=== PATIENT | male | born 1945 | race Caucasian/White ===

== ENCOUNTER 2016-11-06 11:29 | Outpatient (CLI) | payer MEDICARE, OTHER ==
[2016-11-06 19:32] LABS: BASOPHILS % (AUTO) 0.9 %; EOSINOPHILS # (AUTO) 0.4 10^3/uL (0.0-0.7); EOSINOPHILS % (AUTO) 7.2 %; HCT - HEMATOCRIT 45.1 % (42.0-52.0); HGB - HEMOGLOBIN 14.9 g/dL (14.0-18.0); LYMPHOCYTES # (AUTO) 1.6 10^3/uL (1.5-3.5); LYMPHOCYTES % (AUTO) 31.5 %; MEAN CORPUSCULAR HEMOGLOBIN 33.4 pg (27.0-31.0); MEAN CORPUSCULAR HGB CONC 33.1 g/dL (32.0-36.0); MEAN CORPUSCULAR VOLUME 100.9 fL (80.0-94.0); MEAN PLATELET VOLUME 9.2 fL (7.4-11.4); MONOCYTES # (AUTO) 0.9 10^3/uL (0.0-1.0); MONOCYTES % (AUTO) 18.2 %; NEUTROPHILS # (AUTO) 2.1 10^3/uL (1.5-6.6); NEUTROPHILS % (AUTO) 42.2 %; NUCLEATED RED BLOOD CELLS AUTO 0.1 /100WBC; RED BLOOD COUNT 4.47 10^6/uL (4.70-6.10); RED CELL DISTRIBUTION WIDTH 13.4 % (12.0-15.0); UNCORRECTED WHITE BLOOD COUNT 5.1 x10^3/uL; WHITE BLOOD COUNT 5.1 x10^3/uL (4.8-10.8)
[2016-11-06 20:02] LABS: ALBUMIN/GLOBULIN RATIO 1.6 (1.0-2.2); BILIRUBIN,TOTAL 0.9 mg/dL (0.2-1.0); BUN - BLOOD UREA NITROGEN 31 mg/dL (6-20); CALCIUM 9.1 mg/dL (8.5-10.3); CARBON DIOXIDE - CO2 23 mmol/L (21-32); CHLORIDE 108 mmol/L (101-111); CHOLESTEROL 191 mg/dL; CREATININE 1.7 mg/dL (0.6-1.2); GFR - MDRD 40 (>89); GLUCOSE 92 mg/dL (70-100); HDL CHOLESTEROL 38 mg/dL; LDL/HDL RATIO 3.3 (<3.6); POTASSIUM 4.5 mmol/L (3.5-5.0); SODIUM 140 mmol/L (135-145); TOTAL PROTEIN 6.9 g/dL (6.7-8.2); TRIGLYCERIDES 146 mg/dL; VLDL CHOLESTEROL 29 mg/dL
[2016-11-06 20:54] LABS: HEMOGLOBIN A1C 0.68 g/dL
== END 2016-11-06 11:30 | disposition home or self-care (01) ==
LOC: LAB.WCP 11:29
PROVIDERS: ATTEND Family Medicine
DX: N18.9 Chronic kidney disease, unspecified (principal); Z12.5 Encounter for screening for malignant neoplasm of prostate; R79.9 Abnormal finding of blood chemistry, unspecified
CPT/HCPCS: 36415; 80053; 80061; 83036; 85025; G0103; 84153

== ENCOUNTER 2016-11-28 23:22 | Emergency (ER) | payer MEDICARE, OTHER ==
--- NOTE | 2016-11-29 00:27 | XRAY Preliminary Report ---
Exam: XR Wrist 3 View RT IMPRESSION: No displaced right wrist fracture seen. [facility] SITE ID: [id number]
--- NOTE | 2016-11-29 00:30 | XRAY Report ---
EXAM: RIGHT WRIST RADIOGRAPHY EXAM DATE: 11/29/2016 12:14 AM. CLINICAL HISTORY: Fell/injury to R wrist . COMPARISON: None. TECHNIQUE: 3 views. FINDINGS: Bones: Normal. No fractures or bone lesions. Joints: No acute malalignment. Mild right thumb IP joint degenerative changes. Soft Tissues: Possible old tiny flecks of foreign material in the soft tissues of the palmar aspect o f the total right thumb. IMPRESSION: No displaced right wrist fracture seen. [facility] Referring Provider Line: [phone] SITE ID: [id number]
[2016-11-29 00:39] VITALS: BP 143/87
--- NOTE | 2016-11-29 01:10 | ED Physician Documentation ---
History of Present Illness - Stated complaint Stated Complaint: RT wrist PX/INJURY - Chief complaint Chief Complaint: Trauma Ext - History obtained from History obtained from: Patient, Family - Additonal information Additional information: Patient is a pleasant right-hand dominant male who fell on an outstretched right hand. He complains of pain on the lateral aspect distal to the wrist of the right hand. He denies any injury to the elbow or shoulder. This injury occurred prior to arrival. He denies any presyncope or syncope and has no active medical complaints other than pain in the hand. Review of systems: For pertinent positive and negatives in the review of systems please see history of present illness. Otherwise all other systems have been reviewed and are negative. [employer] disclaimer: Parts of this medical record were created using voice recognition technology. Because of the inherent limitations of this system occasional same sounding word substitutions do occur and persist despite proofreading. Please read the document for context. Review of Systems Musculoskeletal: reports: Extremity pain, Joint pain, Extremity swelling, Joint swelling. denies: Neck pain, Back pain PD PAST MEDICAL HISTORY - Past Medical History Past Medical History: Yes Cardiovascular: Hypertension, High cholesterol Endocrine/Autoimmune: Type 2 diabetes Psych: ADD/ADHD - Past Surgical History Past Surgical History: Yes - Present Medications Home Medications: Ambulatory Orders Medication Instructions Recorded Confirmed Tramadol HCl 50 mg PO Q8HR PRN #14 tablet 11/29/16 - Allergies Allergies/Adverse Reactions: Allergies Allergy/AdvReac Type Severity Reaction Status Date / Time shellfish derived Allergy Hives Verified 11/28/16 23:31 - Social History Does the pt smoke?: No Smoking Status: Never smoker Does the pt drink ETOH?: Yes Does the pt have substance abuse?: No - Immunizations Immunizations are current?: Yes - POLST Patient has POLST: No PD ED PE NORMAL - Vitals Vital signs reviewed: Yes - General General: Alert and oriented X 3, No acute distress, Well developed/nourished - HEENT HEENT: Atraumatic, PERRL - Neck Neck: Supple, no meningeal sign - Cardiac Cardiac: RRR - Respiratory Respiratory: No respiratory distress - Back Back: No spinal TTP - Derm Derm: Normal color, Warm and dry - Extremities Extremities: Other (On examination of the right hand he has mild soft tissue swelling and some bruising distal to the right ulna. Careful palpation of the patient's carpal bones really feels fails to fails to identify any significant bony tenderness. The scaphoid area is completely atraumatic. Rest of the patient's wrist and hand was carefully examined and palpated and is unimpressive.) Results - Vitals Vitals: Vital Signs - 24 hr 11/28/16 11/29/16 23:26 00:37 Temperature 36.5 C Heart Rate 81 75 Respiratory 16 16 Rate Blood Pressure 141/85 H 143/87 H O2 Saturation 99 98 Oxygen O2 Source Room air PD MEDICAL DECISION MAKING - ED course ED course: [id number] male who fell on an outstretched hand earlier today. On examination he has mild soft tissue swelling distal to the ulna. There is no scaphoid tenderness on examination. X-rays of the patient's right hand reviewed by me and also read by radiology is negative for any fracture dislocation. Clinically I think suspect a sprain and doubt an occult fracture of the carpal bones. . The patient was placed in a well-padded volar splint for comfort and will be issued pain medication. I have asked him to rest it, elevate it take pain medications as needed and if he still having discomfort, swelling and pain then to follow-up with orthopedics and consider re-x-ray in a week. disposition: To home Clinical impression: 1. Right hand sprain laterally Departure - Departure Disposition: 01 Home, Self Care Clinical Impression: Hand sprain Qualifiers: Encounter type: initial encounter Laterality: right Qualified Code(s): S63.91XA - Sprain of unspecified part of right wrist and hand, initial encounter Condition: Good Instructions: ED Sprain Hand Follow-Up: Rocky Dodd MD [Provider Admit Priv/Credential] - Prescriptions: Tramadol HCl 50 mg PO Q8HR PRN #14 tablet PRN Reason: Pain
== END 2016-11-29 01:18 | disposition home or self-care (01) ==
LOC: ED 23:22
DX: S63.91XA Sprain of unspecified part of right wrist and hand, initial encounter (principal); V58.4XXA Person boarding or alighting a pick-up truck or van injured in noncollision transport accident, initial encounter; I10 Essential (primary) hypertension; E11.9 Type 2 diabetes mellitus without complications
CPT/HCPCS: 29125; 99283

== ENCOUNTER 2017-07-19 08:24 | Outpatient (CLI) | payer MEDICARE, OTHER ==
[2017-07-19 13:08] LABS: ALBUMIN 4.1 g/dL (3.2-5.5); ALBUMIN/GLOBULIN RATIO 1.3 (1.0-2.2); ALKALINE PHOSPHATASE 67 IU/L (42-121); ALT ALANINE AMINOTRANSFERASE 21 IU/L (10-60); AST ASPARTATE AMINOTRANSFERASE 19 IU/L (10-42); BILIRUBIN,TOTAL 0.5 mg/dL (0.2-1.0); BUN - BLOOD UREA NITROGEN 30 mg/dL (6-20); CALCIUM 9.1 mg/dL (8.5-10.3); CARBON DIOXIDE - CO2 21 mmol/L (21-32); CHLORIDE 106 mmol/L (101-111); CHOLESTEROL 222 mg/dL; CREATININE 1.7 mg/dL (0.6-1.2); GFR - MDRD 40 (>89); GLUCOSE 123 mg/dL (70-100); HDL CHOLESTEROL 37 mg/dL; LDL CHOLESTEROL,CALCULATED 157 mg/dL; LDL/HDL RATIO 4.2 (<3.6); SODIUM 138 mmol/L (135-145); TOTAL PROTEIN 7.3 g/dL (6.7-8.2); VLDL CHOLESTEROL 28 mg/dL
[2017-07-19 13:14] LABS: HB2 TOTAL 17.3 g/dL; HEMOGLOBIN A1C 0.74 g/dL; HEMOGLOBIN A1C % 6.1 % (4.6-6.2)
== END 2017-07-19 23:59 | disposition home or self-care (01) ==
LOC: LAB.WCP 08:24
PROVIDERS: ATTEND Family Medicine
DX: E11.22 Type 2 diabetes mellitus with diabetic chronic kidney disease (principal); I12.9 Hypertensive chronic kidney disease with stage 1 through stage 4 chronic kidney disease, or unspecified chronic kidney disease; N18.9 Chronic kidney disease, unspecified; E78.5 Hyperlipidemia, unspecified
CPT/HCPCS: 36415; 80053; 80061; 82043; 83036; 83721

== ENCOUNTER 2017-08-28 13:00 | Outpatient (CLI) | payer MEDICARE, OTHER | END 2017-08-28 13:01 | disposition home or self-care (01) | LOC: SC 13:00 | PROVIDERS: ATTEND Internal Medicine Pulmonary Disease | DX: G47.33 Obstructive sleep apnea (adult) (pediatric) (principal) | CPT/HCPCS: 99203; G0463; 99212 ==

== ENCOUNTER 2017-12-13 13:01 | Outpatient (CLI) | payer MEDICARE, OTHER | END 2017-12-13 13:02 | disposition home or self-care (01) | LOC: SC 13:01 | PROVIDERS: ATTEND Nurse Practitioner Family | DX: G47.33 Obstructive sleep apnea (adult) (pediatric) (principal) | CPT/HCPCS: 99214; G0463; 99212 ==

== ENCOUNTER 2018-02-06 14:26 | Outpatient (CLI) | payer MEDICARE, OTHER ==
[2018-02-06 19:44] LABS: BASOPHILS % (AUTO) 0.8 %; EOSINOPHILS # (AUTO) 0.3 10^3/uL (0.0-0.7); EOSINOPHILS % (AUTO) 4.4 %; HGB - HEMOGLOBIN 15.6 g/dL (14.0-18.0); LYMPHOCYTES # (AUTO) 1.6 10^3/uL (1.5-3.5); LYMPHOCYTES % (AUTO) 25.3 %; MEAN CORPUSCULAR HEMOGLOBIN 33.5 pg (27.0-31.0); MEAN CORPUSCULAR HGB CONC 33.5 g/dL (32.0-36.0); MEAN PLATELET VOLUME 8.6 fL (7.4-11.4); MONOCYTES # (AUTO) 0.9 10^3/uL (0.0-1.0); MONOCYTES % (AUTO) 14.7 %; NEUTROPHILS # (AUTO) 3.4 10^3/uL (1.5-6.6); NEUTROPHILS % (AUTO) 54.8 %; PLT - PLATELET COUNT 238 10^3/uL (130-450); RED BLOOD COUNT 4.67 10^6/uL (4.70-6.10); RED CELL DISTRIBUTION WIDTH 13.4 % (12.0-15.0); WHITE BLOOD COUNT 6.3 x10^3/uL (4.8-10.8)
[2018-02-06 19:54] LABS: BUN - BLOOD UREA NITROGEN 22 mg/dL (6-20); CALCIUM 9.1 mg/dL (8.5-10.3); CARBON DIOXIDE - CO2 26 mmol/L (21-32); CHLORIDE 104 mmol/L (101-111); CHOL/HDL RATIO 4.6 (<5.0); CHOLESTEROL 205 mg/dL; CREATININE 1.4 mg/dL (0.6-1.2); GFR - MDRD 50 (>89); GLUCOSE 108 mg/dL (70-100); HDL CHOLESTEROL 45 mg/dL; LDL CHOLESTEROL,CALCULATED 132 mg/dL; LDL/HDL RATIO 2.9 (<3.6); SODIUM 137 mmol/L (135-145); VLDL CHOLESTEROL 28 mg/dL
[2018-02-06 20:35] LABS: HB2 TOTAL 16.6 g/dL; HEMOGLOBIN A1C 0.71 g/dL; HEMOGLOBIN A1C % 6.1 % (4.6-6.2)
== END 2018-02-06 14:27 | disposition home or self-care (01) ==
LOC: LAB.WCP 14:26
PROVIDERS: ATTEND Family Medicine
DX: E11.22 Type 2 diabetes mellitus with diabetic chronic kidney disease (principal); I12.9 Hypertensive chronic kidney disease with stage 1 through stage 4 chronic kidney disease, or unspecified chronic kidney disease; N18.3 Chronic kidney disease, stage 3 (moderate); D64.9 Anemia, unspecified; E78.5 Hyperlipidemia, unspecified
CPT/HCPCS: 36415; 80048; 80061; 83036; 83721; 85025

== ENCOUNTER 2018-02-28 13:56 | Outpatient (CLI) | payer MEDICARE, OTHER | END 2018-02-28 13:57 | disposition home or self-care (01) | LOC: SC 13:56 | PROVIDERS: ATTEND Nurse Practitioner Family | DX: G47.33 Obstructive sleep apnea (adult) (pediatric) (principal) | CPT/HCPCS: 99214; G0463; 99212 ==

== ENCOUNTER 2018-03-27 13:54 | Outpatient (CLI) | payer MEDICARE, OTHER ==
--- NOTE | 2018-03-28 08:51 | XRAY Report ---
Reason: LT SHOULDER PAIN Procedure Date: 03/27/2018 Accession Number: [id number] / [id number] Procedure: XR - Shoulder 3 View LT CPT Code: FULL RESULT: EXAM: LEFT SHOULDER RADIOGRAPHY EXAM DATE: 03/27/2018 03:35 PM. CLINICAL HISTORY: Left shoulder pain. COMPARISON: None. TECHNIQUE: 3 views. FINDINGS: Bones: Normal. No fracture or bone lesion. Joints: The glenohumeral and acromioclavicular joints are normal. Soft tissues: The visualized hemithorax is unremarkable. No soft tissue swelling. IMPRESSION: Normal shoulder radiography. [facility]
== END 2018-03-27 13:55 | disposition home or self-care (01) ==
LOC: DI 13:54
PROVIDERS: ATTEND Family Medicine
DX: M25.512 Pain in left shoulder (principal)

== ENCOUNTER 2018-05-06 08:00 | Outpatient (CLI) | payer MEDICARE, OTHER ==
[2018-05-06 15:30] LABS: CREATININE 1.3 mg/dL (0.6-1.2)
== END 2018-05-06 23:59 | disposition home or self-care (01) ==
LOC: LAB.WCP 08:00
PROVIDERS: ATTEND Family Medicine
DX: M25.512 Pain in left shoulder (principal); E11.9 Type 2 diabetes mellitus without complications
CPT/HCPCS: 36415; 82565

== ENCOUNTER 2018-06-05 12:45 | Outpatient (CLI) | payer MEDICARE, OTHER | END 2018-06-05 12:46 | disposition home or self-care (01) | LOC: SC 12:45 | PROVIDERS: ATTEND Nurse Practitioner Family | DX: G47.33 Obstructive sleep apnea (adult) (pediatric) (principal) | CPT/HCPCS: 99214; G0463; 99212 ==

== ENCOUNTER 2018-12-11 08:58 | Outpatient (CLI) | payer MEDICARE, OTHER ==
[2018-12-11 12:47] LABS: BASOPHILS % (AUTO) 0.8 %; EOSINOPHILS # (AUTO) 0.3 10^3/uL (0.0-0.7); EOSINOPHILS % (AUTO) 5.4 %; HGB - HEMOGLOBIN 14.6 g/dL (14.0-18.0); LYMPHOCYTES # (AUTO) 1.5 10^3/uL (1.5-3.5); LYMPHOCYTES % (AUTO) 27.9 %; MEAN CORPUSCULAR HEMOGLOBIN 33.2 pg (27.0-31.0); MEAN CORPUSCULAR HGB CONC 32.2 g/dL (32.0-36.0); MEAN PLATELET VOLUME 10.2 fL (7.4-11.4); MONOCYTES # (AUTO) 0.8 10^3/uL (0.0-1.0); MONOCYTES % (AUTO) 16.1 %; NEUTROPHILS # (AUTO) 2.6 10^3/uL (1.5-6.6); NEUTROPHILS % (AUTO) 49.6 %; PLT - PLATELET COUNT 249 10^3/uL (130-450); RED CELL DISTRIBUTION WIDTH 13.3 % (12.0-15.0); WHITE BLOOD COUNT 5.2 x10^3/uL (4.8-10.8)
[2018-12-11 13:33] LABS: CREATININE,URINE 128.4 mg/dL; MICROALBUM/CREATININE RATIO,UR 10.1 ug/mg (<30.0); MICROALBUMIN,URINE 1.3 mg/dL (0-300.0)
[2018-12-11 13:39] LABS: HB2 TOTAL 15.5 g/dL; HEMOGLOBIN A1C 0.69 g/dL; HEMOGLOBIN A1C % 6.2 % (4.6-6.2)
[2018-12-11 14:34] LABS: ALBUMIN 3.7 g/dL (3.2-5.5); ALBUMIN/GLOBULIN RATIO 1.2 (1.0-2.2); ALKALINE PHOSPHATASE 73 IU/L (42-121); ALT ALANINE AMINOTRANSFERASE 19 IU/L (10-60); AST ASPARTATE AMINOTRANSFERASE 23 IU/L (10-42); BILIRUBIN,TOTAL 1.1 mg/dL (0.2-1.0); BUN - BLOOD UREA NITROGEN 27 mg/dL (6-20); CALCIUM 9.3 mg/dL (8.5-10.3); CARBON DIOXIDE - CO2 22 mmol/L (21-32); CHLORIDE 106 mmol/L (101-111); CHOL/HDL RATIO 4.3 (<5.0); CHOLESTEROL 175 mg/dL; CREATININE 1.6 mg/dL (0.6-1.2); GFR - MDRD 43 (>89); GLUCOSE 118 mg/dL (70-100); HDL CHOLESTEROL 41 mg/dL; LDL CHOLESTEROL,CALCULATED 116 mg/dL; LDL/HDL RATIO 2.8 (<3.6); SODIUM 139 mmol/L (135-145); TOTAL PROTEIN 6.9 g/dL (6.7-8.2); VLDL CHOLESTEROL 18 mg/dL
== END 2018-12-11 08:59 | disposition home or self-care (01) ==
LOC: LAB.WCP 08:58
PROVIDERS: ATTEND Family Medicine
DX: E11.9 Type 2 diabetes mellitus without complications (principal); I10 Essential (primary) hypertension; E78.5 Hyperlipidemia, unspecified
CPT/HCPCS: 36415; 80053; 80061; 82043; 82570; 83036; 83721; 84443; 85025

== ENCOUNTER 2019-02-24 08:00 | Outpatient (CLI) | payer MEDICARE, OTHER ==
[2019-02-24 15:26] LABS: MUDS CUTOFF CONCENTRATIONS CUTOFF CONC BELOW:
[2019-02-24 19:23] LABS: AMPHETAMINE SCREEN,URINE NEGATIVE (NEGATIVE); BENZODIAZEPINES SCREEN, URINE NEGATIVE (NEGATIVE); COCAINE SCREEN URINE NEGATIVE (NEGATIVE); METHADONE SCREEN, URINE NEGATIVE (NEGATIVE); METHAMPHETAMINES SCREEN, URINE NEGATIVE (NEGATIVE); OPIATE SCREEN, URINE NEGATIVE (NEGATIVE); OXYCODONE SCREEN, URINE NEGATIVE (NEGATIVE); PROPOXYPHENE SCREEN, URINE NEGATIVE (NEGATIVE); TRICYCLIC ANTIDEPRESSANT,URINE POSITIVE (NEGATIVE)
[2019-02-24 19:24] LABS: ALBUMIN 4.2 g/dL (3.2-5.5); ALBUMIN/GLOBULIN RATIO 1.2 (1.0-2.2); BILIRUBIN,TOTAL 0.7 mg/dL (0.2-1.0); CALCIUM 9.4 mg/dL (8.5-10.3); CREATININE 1.5 mg/dL (0.6-1.2); TOTAL PROTEIN 7.7 g/dL (6.7-8.2)
== END 2019-02-24 08:01 | disposition home or self-care (01) ==
LOC: LAB.R 08:00
PROVIDERS: ATTEND Family Medicine
DX: F31.9 Bipolar disorder, unspecified (principal)
CPT/HCPCS: 36415; 80053; 80306; 84443

== ENCOUNTER 2019-08-18 15:26 | Observation (INO) | payer MEDICARE, OTHER ==
--- NOTE | 2019-08-18 15:39 | ED Physician Documentation ---
PD HPI FOCAL NEURO - Stated complaint Stated Complaint: MEMORY LOSS - Chief complaint Chief Complaint: Neuro - History obtained from History obtained from: Patient - History of Present Illness Timing - onset: How many hours ago (1), Today (at about 2:30 pm, while at home with his .) Timing - duration: Minutes (15-20) Timing - details: Abrupt onset Severity of deficit: Severe (The states she and her were sitting and having a normal conversation in the abruptly did not seem to have any memory of recent or long-term events. He was able to this state his name. The initial appearance of it according to his is that she mentioned a pet dog that they had had recently and her answered what dog". She tried to prod his memory about the dog and he did not remember it at all. She asked about another dog that he had before that and he could not remember that. She asked about some recent events from last week and he could not recall. He has she asked about the president and some other national events in he could not recall either. He did seem a little distressed about not being able to remember these things. She asked about breakfast and he could remember what he had had for breakfast. She did not notice any focal weaknesses. He was able to ambulate without any ataxia. She started coming to the hospital with him. He was actually driving and was able to navigate appropriately and got to the hospital without needing directions. He was improved in his memory on route so duration was only about 20 minutes.) Weakness: No: Face, Arm, Leg Numbness: No: Face, Arm, Leg Associated symptoms: No: Headache, Seizure, Syncope, Fall, Head injury (No recent or current head injury. 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 He had not had any symptoms this abrupt.) Contributing factors: negative: Anticoagulated, Atrial fibrillation Baseline status: positive: A&OX3, ambulatory, indep Similar symptoms before: Has not had sx before Review of Systems Constitutional: denies: Fever, Chills, Myalgias Nose: denies: Rhinorrhea / runny nose, Congestion Throat: denies: Sore throat Cardiac: denies: Chest pain / pressure, Palpitations Respiratory: denies: Dyspnea, Cough GI: denies: Abdominal Pain, Nausea, Vomiting Neurologic: reports: Confused (not really confused but acute memory loss). denies: Focal weakness, Numbness, Altered mental status, Headache PD PAST MEDICAL HISTORY - Past Medical History Cardiovascular: Hypertension, High cholesterol Endocrine/Autoimmune: Type 2 diabetes Psych: ADD/ADHD - Past Surgical History Past Surgical History: Yes - Present Medications Home Medications: Ambulatory Orders Medication Instructions Recorded Confirmed Gabapentin 100 mg PO TID 08/18/19 08/18/19 Gemfibrozil [Lopid] 600 mg PO DAILY 08/18/19 08/18/19 Glipizide [Glipizide Xl] 2.5 mg PO BID 08/18/19 08/18/19 Imipramine [Tofranil] 100 mg PO QPM 08/18/19 08/18/19 Lamotrigine [Lamotrigine ER] 100 mg PO DAILY 08/18/19 08/18/19 Losartan [Cozaar] 100 mg PO DAILY 08/18/19 08/18/19 Prazosin [Minipress] 1 mg PO QPM 08/18/19 08/18/19 - Allergies Allergies/Adverse Reactions: Allergies Allergy/AdvReac Type Severity Reaction Status Date / Time shellfish derived Allergy Hives Verified 08/18/19 15:46 - Social History Does the pt smoke?: No Smoking Status: Never smoker Does the pt drink ETOH?: Yes Does the pt have substance abuse?: No - Family History Family history: denies: Cerebral aneurysm - Immunizations Immunizations are current?: Yes - POLST Patient has POLST: No PD ED PE NORMAL - Vitals Vital signs reviewed: Yes - General General: Alert and oriented X 3, No acute distress, Well developed/nourished - HEENT HEENT: Atraumatic, PERRL, EOMI, Moist mucous membranes, Pharynx benign - Neck Neck: Supple, no meningeal sign, No adenopathy - Cardiac Cardiac: RRR, No murmur - Respiratory Respiratory: Clear bilaterally - Abdomen Abdomen: Soft, Non tender - Derm Derm: Normal color, Warm and dry - Extremities Extremities: No tenderness to palpate, Normal ROM s pain, No edema, No calf tenderness / cord - Neuro Neuro: Alert and oriented X 3, ui developer designer 2-12 intact, No motor deficit, No sensory deficit, Normal speech, Other Eye Opening: Spontaneous Motor: Obeys Commands Verbal: Oriented GCS Score: 15 NIHSS - Level of Consciousness Level of consciousness: (0) Alert, Keenly responsive LOC Questions: (0) Answers both Q's correct LOC Commands: (0) Performs both correctly - Gaze Best Gaze: (0) Normal - Visual Visual: (0) No loss - Facial Palsy Facial Palsy: (0) Normal, symmetrical movement - Motor Arms (both separate) Motor Arm (right): (0) No drift Motor Arm (left): (0) No drift - Motor Legs (both separate) Motor Leg (right): (0) No drift Motor Leg (left): (0) No drift - Limb Ataxia Limb Ataxia: (0) Absent - Sensory Sensory: (0) Normal - Best Language Best Language: (0) No aphasia - Dysarthria Dysarthria: (0) Normal - Extinction and Inattention (formally neg Extinction and inattention: (0) No abnormality - Total Score/Results Total Score/Result: 0 Results - Vitals Vitals: Vital Signs - 24 hr 08/18/19 08/18/19 08/18/19 15:33 15:44 16:42 Temperature 36.3 C L 36.9 C Heart Rate 84 82 72 Respiratory 16 18 20 Rate Blood Pressure 147/93 H 155/100 H 153/95 H O2 Saturation 97 99 100 08/18/19 17:11 Temperature Heart Rate 76 Respiratory 21 Rate Blood Pressure 161/95 H O2 Saturation 97 Oxygen O2 Source Room air - EKG (time done) 16:38 Rate: Rate (enter#) (77) Rhythm: NSR [place]: Normal Intervals: Normal OK QRS: Normal Ischemia: Normal ST segments. No: ST elevation c/w ischemia, ST depression - Labs Labs: Laboratory Tests 08/18/19 08/18/19 08/18/19 16:00 16:00 16:00 WBC 5.9 RBC 4.53 L Hgb 15.3 Hct 46.5 MCV 102.6 H MCH 33.8 H MCHC 32.9 RDW 12.6 Plt Count 208 MPV 10.2 Neut # (Auto) 3.0 Lymph # (Auto) 1.6 [place] # (Auto) 1.0 Eos # (Auto) 0.3 Baso # (Auto) 0.0 Absolute Nucleated RBC 0.00 Nucleated RBC % 0.0 ESR 1 Sodium 137 Potassium 4.6 Chloride 104 Carbon Dioxide 25 Anion Gap 8.0 BUN 23 H Creatinine 1.4 H Estimated GFR (MDRD) 50 L Glucose 75 Calcium 8.7 Magnesium 2.2 Total Bilirubin 1.0 AST 32 ALT 43 Alkaline Phosphatase 80 Total Protein 7.2 Albumin 3.8 Globulin 3.4 Albumin/Globulin Ratio 1.1 Lipase 30 - Rads (name of study) head CT Radiology: Prelim report reviewed (No acute bleed nor acute abnormality), Discussed with rads, See rad report head and neck angio Radiology: Prelim report reviewed, Discussed with rads (mild occlusion of carotid (20%); no acute process. ), See rad report PD MEDICAL DECISION MAKING - ED course Complexity details: reviewed results, re-evaluated patient, considered differential (The symptoms sound like an episode of transient global amnesia Tomasa though the emphasis on his memory loss was more longer to midterm and not short-term memory so not exactly like the classic pattern. There are no focal weaknesses noted it sounds like his did a pretty good job of assessing some of the classic stroke findings. At this point will evaluate for TIA versus CVA and assure no vascular process. We will also get labs and sed rate to look for inflammatory conditions.), d/w patient Departure - Departure Disposition: ED Place in Observation Clinical Impression: Transient memory loss Condition: Stable Record reviewed to determine appropriate education?: Yes
[2019-08-18] MEDS ORDERED: SODIUM CHLORIDE 0.9% 1,000 ML IV ONE (16:09)
[2019-08-18] MEDS ORDERED: IOVERSOL 320 100 ML VIAL IVP ONE ×2 (16:14→16:39)
[2019-08-18 16:19] LABS: BASOPHILS % (AUTO) 0.7 %; EOSINOPHILS # (AUTO) 0.3 10^3/uL (0.0-0.7); EOSINOPHILS % (AUTO) 4.4 %; HGB - HEMOGLOBIN 15.3 g/dL (14.0-18.0); LYMPHOCYTES # (AUTO) 1.6 10^3/uL (1.5-3.5); LYMPHOCYTES % (AUTO) 27.6 %; MEAN CORPUSCULAR HEMOGLOBIN 33.8 pg (27.0-31.0); MEAN CORPUSCULAR HGB CONC 32.9 g/dL (32.0-36.0); MEAN CORPUSCULAR VOLUME 102.6 fL (80.0-94.0); MEAN PLATELET VOLUME 10.2 fL (7.4-11.4); MONOCYTES % (AUTO) 16.6 %; NEUTROPHILS % (AUTO) 50.4 %; PLT - PLATELET COUNT 208 10^3/uL (130-450); RED BLOOD COUNT 4.53 10^6/uL (4.70-6.10); RED CELL DISTRIBUTION WIDTH 12.6 % (12.0-15.0); WHITE BLOOD COUNT 5.9 x10^3/uL (4.8-10.8)
[2019-08-18 16:25] LABS: ALBUMIN 3.8 g/dL (3.2-5.5); ALBUMIN/GLOBULIN RATIO 1.1 (1.0-2.2); CALCIUM 8.7 mg/dL (8.5-10.3); CREATININE 1.4 mg/dL (0.6-1.2); MAGNESIUM 2.2 mg/dL (1.7-2.8); TOTAL PROTEIN 7.2 g/dL (6.7-8.2)
--- NOTE | 2019-08-18 16:53 | CT Report ---
Reason: transient memory loss Procedure Date: 08/18/2019 Accession Number: [id number] / [id number] Procedure: CT - Head W/O Stroke Protocol CPT Code: Final Report FULL RESULT: EXAM: CT HEAD EXAM DATE: 08/18/2019 04:31 PM. CLINICAL HISTORY: Transient memory loss. COMPARISON: HEAD ANGIO 08/18/2019 4:23 PM HEAD 01/26/2009 11:16 AM. TECHNIQUE: Multiaxial CT images were obtained from the foramen magnum to the vertex. Reformats: Sagittal and coronal. IV contrast: None. In accordance with CT protocol optimization, one or more of the following dose reduction techniques were utilized for this exam: automated exposure control, adjustment of mA and/or KV based on patient size, or use of iterative reconstructive technique. FINDINGS: Parenchyma: No intraparenchymal hemorrhage. There are areas of low density involving white matter bilateral cerebral hemispheres. There is a band of encephalomalacia involving the right lateral temporal lobe. Extraaxial Spaces: No subdural or epidural collections identified. Ventricles: Mild prominence. Mild ex vacuo enlargement of right temporal horn. Sinuses and Orbits: Imaged paranasal sinuses, orbits, and mastoids show no significant abnormality. Bones: No evidence of fracture or calvarial defect. Other: None. IMPRESSION: 1. No CT evidence of acute intracranial process. 2. 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 3. Mild microvascular white matter disease. [facility] The critical test notification system was initiated by Dr. Freddy Escobar at 04:44 PM on 08/18/2019. The above critical test findings were discussed with Dr. Contreras by Dr. Freddy Escobar at 04:46 PM on 08/18/2019.
--- NOTE | 2019-08-18 17:00 | CT Report ---
Reason: L sided facial droop Procedure Date: 08/18/2019 Accession Number: [id number] / [id number] Procedure: CT - ANGIO HEAD W/WO CPT Code: Final Report FULL RESULT: EXAM: CT ANGIOGRAM HEAD. CT SCAN OF THE HEAD WITH CONTRAST. EXAM DATE: 08/18/2019 04:31 PM CLINICAL HISTORY: Left sided facial droop. COMPARISON: None. TECHNIQUE: - CT Scan Head: Using a multidetector scanner, axial images were acquired from the foramen magnum to the skull vertex following contrast administration. - CT Angiogram: Using a multidetector scanner, high-resolution axial images were acquired from the skull base through vertex following rapid infusion of intravenous contrast. Reformats: Multiplanar MIP reformats were reconstructed. NASCET criteria used for stenosis measurement. IV Contrast: OPTIRAY 320. In accordance with CT protocol optimization, one or more of the following dose reduction techniques were utilized for this exam: automated exposure control, adjustment of mA and/or KV based on patient size, or use of iterative reconstructive technique. FINDINGS: POST-CONTRAST HEAD: No abnormal enhancement. Again there is right temporal volume loss and areas of right lateral temporal low density. There is of low density involving white matter cerebral hemispheres. Mild enlargement of lateral ventricles. No mass-effect nor midline shift. CT ANGIOGRAM HEAD: There are mild calcifications of bilateral carotid siphons without significant narrowing. No evidence of large vessel occlusion. No intracranial stenosis. No aneurysm. Left posterior communicating artery identified. Right posterior communicating artery not visualized. DURAL VENOUS SINUSES AND MAJOR CENTRAL VEINS: Patent. IMPRESSION: CT Head: No abnormal enhancement. CTA Head: Normal CTA of the head. No significant vascular stenosis, dissection, or aneurysm. Results discussed with Dr. Contreras 08/18/2019 4:46 PM. [facility]
--- NOTE | 2019-08-18 17:10 | CT Report ---
Reason: L sided facial droop, L neck pain Procedure Date: 08/18/2019 Accession Number: [id number] / [id number] Procedure: CT - ANGIO NECK W CPT Code: Final Report FULL RESULT: EXAM: CT ANGIOGRAM NECK EXAM DATE: 08/18/2019 04:31 PM. CLINICAL HISTORY: L sided facial droop, L neck pain. COMPARISON: None. TECHNIQUE: Routine axial helical imaging was performed from the skull base through the aortic arch. Reconstructions: Routine multiplanar 3D MIP reconstructions. IV Contrast: OPTIRAY 320. Evaluation of arterial stenosis is based on a NASCET method of measurement. In accordance with CT protocol optimization, one or more of the following dose reduction techniques were utilized for this exam: automated exposure control, adjustment of mA and/or KV based on patient size, or use of iterative reconstructive technique. FINDINGS: Right Carotid: The common carotid, internal carotid, and external carotid arteries are widely patent. No dissection, significant atherosclerotic plaque, or calcification identified. Left Carotid: The common carotid is normal in caliber. There is largely low-density plaque involving the proximal left ICA with 20% stenosis. ICA otherwise normal in caliber. Vertebrals: There is communication with approximately 50% narrowing of the right vertebral origin. Right vertebral is otherwise normal in caliber. There is calcified plaque with mild narrowing of the left vertebral origin. Left vertebral otherwise normal in caliber. Other: Lung apices are clear. There are bridging anterior osteophytes at the C4-C5, C5-C6, and C6-C7 levels. There is a mildly prominent left level 4 paratracheal inferior cervical lymph node. This measures 14 mm in short axis (series 2, image 129). Otherwise soft tissues of neck unremarkable. IMPRESSION: 1. 20% proximal left ICA stenosis. 2. Moderate narrowing of right vertebral origin. Mild narrowing of left vertebral origin. 3. No right carotid stenosis. 4. Mildly enlarged left inferior cervical paratracheal lymph node. Appearance is nonspecific and may be related to inflammatory or neoplastic process. [facility] The above call report findings were discussed with Dr. Contreras by Dr. Freddy Escobar at 05:05 PM on 08/18/2019.
[2019-08-18] MEDS ORDERED: ACETAMINOPHEN 325 MG TABLET PO STA (17:20)
[2019-08-18] MEDS ORDERED: ONDANSETRON ODT 4 MG TABLET TL PRN (17:48)
[2019-08-18] MEDS ORDERED: oxyCODONE 5 MG TABLET PO PRN (17:48)
[2019-08-18] MEDS ORDERED: ACETAMINOPHEN 325 MG TABLET PO PRN (17:48)
[2019-08-18] MEDS ORDERED: SODIUM CHLORIDE FLUSH 0.9% 10 ML SYRINGE IVP PRN (17:48)
[2019-08-18] MEDS ORDERED: hydrALAZINE INJ 20 MG/ML VIAL IVP PRN (17:52)
[2019-08-18 18:32] LABS: HB2 TOTAL 15.7 g/dL; HEMOGLOBIN A1C 0.66 g/dL
--- NOTE | 2019-08-18 20:55 | HISTORY & PHYSICAL EXAMINATION ---
Chief Complaint - Chief Complaint Chief Complaint: Sudden Memory Loss History of Present Illness - Admitted From Admitted From:: ED - History Obtained From Records Reviewed: ED History obtained from: Pt Exam Limitations: None - History of Present Illness HPI Comment/Other: Per Dr Contreras HPI, and confirmed with patient: "The states she and her were sitting and having a normal conversation in the abruptly did not seem to have any memory of recent or long- term events. He was able to this state his name. The initial appearance of it according to his is that she mentioned a pet dog that they had had recently and her answered what dog". She tried to prod his memory about the dog and he did not remember it at all. She asked about another dog that he had before that and he could not remember that. She asked about some recent events from last week and he could not recall. He has she asked about the president and some other national events in he could not recall either. He did seem a little distressed about not being able to remember these things. She asked about breakfast and he could remember what he had had for breakfast. She did not notice any focal weaknesses. He was able to ambulate without any ataxia. She started coming to the hospital with him. He was actually driving and was able to navigate appropriately and got to the hospital without needing directions. He was improved in his memory on route so duration was only about 20 minutes." History - Past Medical History Cardiovascular: reports: Hypertension, High cholesterol Respiratory: reports: None Neuro: reports: Head injury, Peripheral neuropathy Endocrine/Autoimmune: reports: Type 2 diabetes GI: reports: None : reports: None HEENT: reports: Chronic vision loss Psych: reports: ADD/ADHD Musculoskeletal: reports: None Derm: reports: None MRSA Hx?: No - Family & Social History Family History: Mother: Diabetes, Type 2 Living arrangement: At home Living Situation: With spouse/s.o. - Substance History Use: Uses substance without health or social issues: NONE - POLST Patient has POLST: No POLST Status: Full Code Meds/Allgy - Home Medications Home Medications: Ambulatory Orders Medication Instructions Recorded Confirmed Divalproex ER [Depakote ER] 1,000 mg PO DAILY 08/18/19 08/18/19 Gabapentin 300 mg PO TID 08/18/19 08/18/19 Gemfibrozil [Lopid] 600 mg PO DAILY 08/18/19 08/18/19 Glipizide [Glipizide Xl] 2.5 mg PO BID 08/18/19 08/18/19 Imipramine [Tofranil] 100 mg PO QPM 08/18/19 08/18/19 Losartan [Cozaar] 100 mg PO DAILY 08/18/19 08/18/19 Prazosin [Minipress] 1 mg PO QPM 08/18/19 08/18/19 - Allergies Allergies/Adverse Reactions: Allergies Allergy/AdvReac Type Severity Reaction Status Date / Time shellfish derived Allergy Hives Verified 08/18/19 15:46 Review of Systems - Constitutional Constitutional: denies: Fatigue, Weakness - Eyes Eyes: denies: Blurred vision, Dipolpia - Cardiovascular Cariovascular: denies: Irregular heart rate, Chest pain Prior Level of Functionality: Ambulatory at baseline Exam - Vital Signs Vital Signs: Vital Signs x48h Temp Pulse Pulse Resp BP BP Pulse Ox 08/18/19 19:45 36.3 C L 66 22 158/82 H 98 08/18/19 17:11 76 21 161/95 H 97 08/18/19 16:42 36.9 C 72 20 153/95 H 100 08/18/19 15:44 82 18 155/100 H 99 08/18/19 15:33 36.3 C L 84 16 147/93 H 97 - Physical Exam General Appearance: positive: No acute distress Eyes Bilateral: positive: Normal inspection ENT: positive: ENT inspection nml Neck: positive: Nml inspection, Thyroid nml, No JVD Respiratory: positive: Chest non-tender, No respiratory distress, Breath sounds nml Cardiovascular: positive: Regular rate & rhythm, No murmur, No gallop Peripheral Pulses: positive: 2+ Abdomen: positive: Non-tender, No organomegaly, Nml bowel sounds Skin: positive: Color nml Extremities: positive: Non-tender, Full ROM, Nml appearance, No pedal edema Neurologic/Psychiatric: positive: Oriented x3, CN's nml (2-12) Sepsis Event Note (H) - Evaluation Current Stage of Sepsis: Ruled out Conclusion/Plan - Problem List (1) Transient memory loss Conclusion/Plan: Likely transient global amnesia, for which only supportive care is standard of care. Sx seems to have resolved. Imaging so far, including CT Head, CTA head & neck, all reassuring. Will get MRI in am, and possible dc home if clinically well and normal MRI. (2) Type 2 diabetes mellitus Conclusion/Plan: Diabetic diet and corrective sliding scale. 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 care home use Diabetes mellitus complication status: with neurologic complications Diabetes mellitus complication detail: with polyneuropathy Qualified Code(s): E11.42 - Type 2 diabetes mellitus with diabetic polyneuropathy - Lab Results Lab results reviewed: Yes Fish Bones: 08/18/19 16:00 08/18/19 16:00 - Diagnostic Imaging Results Diagnostic Imaging Results: positive: Prelim report reviewed - EKG Results EKG Interpreted Independently: Yes Core Measures - Anticipated LOS I expect patient to be DC'd or transferred within 96 hours.: Yes - DVT/VTE - Prophylaxis VTE/DVT Device ordered at admit?: Yes - Stroke - Rehab Assessment Not Ordered - Medical Reason: Not indicated - AMI - Statin at Admit Aspirin Prescribed on Admit: Yes
[2019-08-18] MEDS: FAMOTIDINE 20 MG TABLET PO SCH (21:16)
[2019-08-18] MEDS: INSULIN ASPART 300 UNIT/3 ML PEN SUBQ SCH (21:16)
[2019-08-19] MEDS: SODIUM CHLORIDE FLUSH 0.9% 10 ML SYRINGE IVP SCH ×2 (00:41→08:12)
[2019-08-19 06:00] LABS: BASOPHILS # (AUTO) 0.1 10^3/uL (0.0-0.1); BASOPHILS % (AUTO) 0.8 %; EOSINOPHILS # (AUTO) 0.3 10^3/uL (0.0-0.7); EOSINOPHILS % (AUTO) 5.4 %; HGB - HEMOGLOBIN 14.6 g/dL (14.0-18.0); LYMPHOCYTES % (AUTO) 32.6 %; MEAN CORPUSCULAR HEMOGLOBIN 33.5 pg (27.0-31.0); MEAN CORPUSCULAR HGB CONC 33.3 g/dL (32.0-36.0); MEAN CORPUSCULAR VOLUME 100.7 fL (80.0-94.0); MEAN PLATELET VOLUME 10.4 fL (7.4-11.4); MONOCYTES # (AUTO) 1.1 10^3/uL (0.0-1.0); MONOCYTES % (AUTO) 17.1 %; NEUTROPHILS # (AUTO) 2.8 10^3/uL (1.5-6.6); NEUTROPHILS % (AUTO) 43.9 %; PLT - PLATELET COUNT 207 10^3/uL (130-450); RED BLOOD COUNT 4.36 10^6/uL (4.70-6.10); RED CELL DISTRIBUTION WIDTH 12.4 % (12.0-15.0); WHITE BLOOD COUNT 6.3 x10^3/uL (4.8-10.8)
[2019-08-19 06:16] LABS: ALBUMIN 3.4 g/dL (3.2-5.5); ALBUMIN/GLOBULIN RATIO 1.1 (1.0-2.2); ALKALINE PHOSPHATASE 60 IU/L (42-121); ALT ALANINE AMINOTRANSFERASE 39 IU/L (10-60); AST ASPARTATE AMINOTRANSFERASE 28 IU/L (10-42); BUN - BLOOD UREA NITROGEN 21 mg/dL (6-20); CALCIUM 8.6 mg/dL (8.5-10.3); CARBON DIOXIDE - CO2 23 mmol/L (21-32); CHLORIDE 107 mmol/L (101-111); CHOLESTEROL 204 mg/dL; CREATININE 1.3 mg/dL (0.6-1.2); GLUCOSE 77 mg/dL (70-100); HDL CHOLESTEROL 34 mg/dL; LDL CHOLESTEROL,CALCULATED 124 mg/dL; LDL/HDL RATIO 3.6 (<3.6); SODIUM 135 mmol/L (135-145); TOTAL PROTEIN 6.6 g/dL (6.7-8.2); VLDL CHOLESTEROL 46 mg/dL
[2019-08-19] MEDS ORDERED: ASPIRIN 325 MG TABLET PO SCH (08:00)
[2019-08-19] MEDS: INSULIN ASPART 300 UNIT/3 ML PEN SUBQ SCH ×2 (08:10→12:06)
[2019-08-19] MEDS: FAMOTIDINE 20 MG TABLET PO SCH (08:11)
[2019-08-19] MEDS ORDERED: ENOXAPARIN 40 MG/0.4 ML SYRINGE SUBQ SCH (09:00)
--- NOTE | 2019-08-19 09:35 | MRI Report ---
Reason: R/O CVA Procedure Date: 08/19/2019 Accession Number: [id number] / [id number] Procedure: MRI - Brain W/O CPT Code: Final Report FULL RESULT: EXAM: MRI BRAIN WITHOUT CONTRAST EXAM DATE: 08/19/2019 09:20 AM. CLINICAL HISTORY: Evaluate for CVA. Loss of memory yesterday, symptoms have resolved. COMPARISON: CT HEAD ANGIO 08/18/2019 4:[address] HEAD W/O STROKE PROTOCOL 08/18/2019 4:23 PM. TECHNIQUE: Multiplanar, multisequence T1-weighted and fluid-sensitive MR sequences of the brain were performed. Sequences optimized for routine evaluation. Other: None. IV Contrast: None. FINDINGS: Brain Volume: Mild diffuse atrophy is present. Parenchyma/Dura: No mass, acute infarct or hemorrhage. Mild confluent periventricular with diffuse scattered deep and subcortical white matter T2/FLAIR bright signal is seen throughout the cerebral hemispheres and brainstem. Patchy areas of encephalomalacia are seen involving anterior and lateral right temporal lobe. There is a punctate cystic focus in the anterior body of the right caudate nucleus. Ventricles/Cisterns: Mild prominence to the ventricular system and overlying cortical sulci is noted. No hydrocephalus. No abnormal extra-axial fluid collection or hemorrhage. Orbits: Symmetric and unremarkable. Sella Turcica: The pituitary gland, cavernous sinuses, suprasellar cistern and optic chiasm are unremarkable. IAC: Symmetric and unremarkable. Vasculature: Normal signal flow void is seen in the major arterial structures at the skull base. Sinuses: No acute appearing sinus disease. Mucosal thickening is seen at the left frontoethmoidal recess. Mucosal thickening is seen involving the inferior right mastoid air cells. Bones: No focal pathologic appearing marrow signal changes. Other: The visualized nasopharynx and infratemporal fossa are unremarkable. IMPRESSION: 1. No acute intracranial abnormality. No acute infarct, mass, or hemorrhage. 2. Encephalomalacia noted in the anterior and lateral right temporal lobe. This may represent sequela of ischemia or trauma. 3. Punctate cystic focus in the anterior body of the right caudate nucleus. This is consistent with old lacunar infarct. 4. Senescent change. Age-related atrophy. White matter signal abnormality is seen in the cerebral hemispheres and brainstem. This is nonspecific. This can be seen secondary to small vessel ischemic change. RADIA
[2019-08-19 11:13] VITALS: BP 145/85
[2019-08-19] MEDS ORDERED: HALOPERIDOL 5 MG/ML VIAL IVP ONE (12:18)
--- NOTE | 2019-08-19 13:11 | Discharge Plan ---
Discharge Plan Problem Reviewed?: Yes Disposition: Home, Self Care Condition: Good Prescriptions: Aspirin Chewable [[facility] Aspirin] 81 mg PO DAILY #30 tablet Atorvastatin Calcium 40 mg PO DAILY PM #30 tablet Clopidogrel [Plavix] 75 mg PO DAILY #21 tablet Diet: Diabetic Activity Restrictions: NO driving due to TIA, memory difficulties Shower Restrictions: No Driving Restrictions: Yes Weight Bearing: Full Weight Instruction Topics: TIA, Dementia Health Concerns: Progressive dementia Safety at home Bowel and bladder incontinence PFO (patent foreamen ovale) Bubble study being positive Prior brain injuries Plan of Treatment: Begin taking a baby aspirin, Plavix for 21 days, and a statin medication to prevent a recurrence of TIA or stroke. See Dr. Sprague as scheduled Expect contact from CALVIN Brown with Palliative care to be ordered by Dr. Sprague. Make a referral to a neurologist as previously planned Make a referral to a rig supervisor for the new PFO noted on the echocardiogram Care Goals: Prevent falls at home Ensure safety Consult with specialists to confirm final diagnoses of progressive dementia versus an issue with the low back Support at home with Palliative care Assessment: You were admitted to the hospital for a stroke work up including an echocardiogram of your heart showing overall good function without valve abnormalities. You were found to have a patent foreamen ovale (PFO), which in some patient may be lead to stroke symptoms. The brain MRI confirmed no acute strokes, no brain bleeding and no masses. Findings on the brain imaging do explain his dementia like symptoms, and memory loss. Palliative care is recommended since dementia progresses at different rates for different people. You are medically stable and can return home with your . Please take it easy and rest for the next few days. No Smoking: If you smoke, Please STOP! Call for help. Follow-up with: Thuan Sprague DO [Primary Care Provider] -
[2019-08-19] MEDS ORDERED: CLOPIDOGREL 300 MG TABLET PO ONE (13:14)
[2019-08-19] MEDS ORDERED: DIVALPROEX ER 250 MG TABLET PO SCH (13:15)
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
== END 2019-08-19 13:57 | disposition home or self-care (01) ==
LOC: ED 15:26 → MS2 17:48
PROVIDERS: ADMIT Family Medicine Sports Medicine; ATTEND Nurse Practitioner
DX: G45.9 Transient cerebral ischemic attack, unspecified (principal); F03.90 Unspecified dementia, unspecified severity, without behavioral disturbance, psychotic disturbance, mood disturbance, and anxiety; Q21.1 Atrial septal defect; F07.81 Postconcussional syndrome; R41.3 Other amnesia; I10 Essential (primary) hypertension; E11.42 Type 2 diabetes mellitus with diabetic polyneuropathy; E78.1 Pure hyperglyceridemia; E78.5 Hyperlipidemia, unspecified; F90.9 Attention-deficit hyperactivity disorder, unspecified type; G89.29 Other chronic pain; M54.9 Dorsalgia, unspecified; M19.90 Unspecified osteoarthritis, unspecified site; R35.1 Nocturia; R32 Unspecified urinary incontinence; R15.9 Full incontinence of feces; Z91.81 History of falling; Z79.84 Long term (current) use of oral hypoglycemic drugs
CPT/HCPCS: 36415; 70496; 70498; 70551; 80053; 80061; 83036; 83690; 83735; 84443; 85025; 85651; 93005; 93306; 96360; 96372; 99284; 99285; A9270; G0378; J1650; Q9967; 70450; 83721

== ENCOUNTER 2020-03-16 08:00 | Outpatient (CLI) | payer MEDICARE, OTHER | END 2020-03-16 23:59 | disposition home or self-care (01) | LOC: LAB.R 08:00 | PROVIDERS: ATTEND Family Medicine | DX: N39.0 Urinary tract infection, site not specified (principal) | CPT/HCPCS: 87086 ==

== ENCOUNTER 2020-04-02 08:00 | Outpatient (CLI) | payer MEDICARE, OTHER | END 2020-04-02 23:59 | disposition home or self-care (01) | LOC: LAB.R 08:00 | PROVIDERS: ATTEND Family Medicine | DX: R05 Cough (principal); Z20.828 Contact with and (suspected) exposure to other viral communicable diseases ==

== ENCOUNTER 2020-04-02 16:09 | Outpatient (CLI) | payer MEDICARE, OTHER ==
--- NOTE | 2020-04-02 16:11 | XRAY Report ---
PROCEDURE: Chest 2 View X-Ray INDICATIONS: COUGH TECHNIQUE: 2 view(s) of the chest. COMPARISON: None. FINDINGS: Surgical changes and devices: None. Lungs and pleura: No pleural effusions or pneumothorax. Subtle patchy opacity noted in the posterior aspect of the left lung base which could represent atelectasis or pneumonia. Mediastinum: Mediastinal contours are normal. Heart size is normal. Bones and chest wall: No suspicious bony abnormalities. Soft tissues appear unremarkable. IMPRESSION: Subtle opacities in left lung base compatible atelectasis versus pneumonia. Reviewed by: Brenda Concepcion MD, PhD on 04/02/2020 4:10 PM PST Approved by: Brenda Concepcion MD, PhD on 04/02/2020 4:10 PM PST Station ID: [id number]
== END 2020-04-02 23:59 | disposition home or self-care (01) ==
LOC: DI.N 16:09
PROVIDERS: ATTEND Family Medicine
DX: R05 Cough (principal); Z20.828 Contact with and (suspected) exposure to other viral communicable diseases
CPT/HCPCS: 71046; U0004